=== PATIENT | male | born 1980 | race Caucasian/White ===

== ENCOUNTER 2022-05-29 10:45 | Emergency (ER) | payer BC, SELFPAY ==
[2022-05-29 11:00] VITALS: BP 126/76; PULSE 90; RESP 16; TEMP 37; O2SAT 99
[2022-05-29 11:01] VITALS: BP 126/76; PULSE 90; RESP 16; TEMP 37; O2SAT 99
--- NOTE | 2022-05-29 11:27 | ED.SKABFB ---
HPI - Skin/Abscess/Foreign Bdy General Chief complaint: Skin/Abscess/Foreign Body Stated complaint: Rash On Body Time Seen by Provider: 05/29/22 11:27 Source: patient Mode of arrival: ambulatory Limitations: no limitations History of Present Illness HPI narrative: 41-year-old male presents with complaint of itchy rash to body. Patient states that he has had this same rash in the past and it was fungal. States that he did a wash that he left on prior to getting into the shower. Also took some pills but he is unsure of what they were. States that he goes to the gym daily and thinks that the fungal rash Is possibly from gym equipment. all systems reviewed and negative except as noted above. Related Data Home Medications Medication Instructions Recorded Confirmed meloxicam 15 mg tablet 15 mg DIRECTED 05/29/22 05/29/22 tizanidine 4 mg tablet 4 mg DIRECTED 05/29/22 05/29/22 tramadol 50 mg tablet 50 mg DIRECTED 05/29/22 05/29/22 Allergies Allergy/AdvReac Type Severity Reaction Status Date / Time No Known Allergies Allergy Verified 05/29/22 11:00 Review of Systems Review of Systems: CONSTITUTIONAL: Denies fever, chills, or sweats. EYES: Denies visual changes, redness, or discharge. ENT: Denies rhinorrhea, congestion, sore throat, or otalgia. CARDIOVASCULAR: Denies chest pain, palpitations, or edema. RESPIRATORY: Denies cough or dyspnea. GASTROINTESTINAL: Denies abdominal pain, nausea, vomiting, or diarrhea. GENITOURINARY: Denies dysuria or hematuria. SKIN: Reports itchy rash to trunk. MUSCULOSKELETAL: Denies back pain, joint pain, or myalgia. NEUROLOGIC: Denies headache, numbness, or weakness. PSYCHIATRIC: Denies anxiety or depression. All other systems reviewed are negative, except as documented in HPI. PMFSH Comments At time of signature, agree with nursing past medical, surgical, social and family history. There is no relevant family history pertinent to the presenting complaint. Exam Narrative: GENERAL: This is a well-nourished, well-developed patient, in no apparent distress. HEAD: normocephalic, atraumatic. EYES: PERRL. Sclera clear/white. Vision is grossly intact. EARS: External ears normal NOSE: External nose normal NECK: Neck supple, non-tender without lymphadenopathy, masses or thyromegaly. CARDIOVASCULAR: Regular rate and rhythm without murmurs, gallops, or rubs. RESPIRATORY: Clear to auscultation. Breath sounds equal bilaterally. No wheezes, rales, or rhonchi. SKIN: warm, Dry, intact, good texture and turgor. erythematous erythematous scaling lesions to trunk NEURO: awake, alert, and oriented to person, place and time. There were no obvious focal neurologic abnormalities. EXTREMITIES: No joint tenderness, effusion, or edema noted. Course Course Level of Care: Express Care Visit Vital Signs Vital signs: Vital Signs Temperature 37.0 C 05/29/22 11:00 Pulse Rate 90 05/29/22 11:00 Respiratory Rate 16 05/29/22 11:00 Blood Pressure 126/76 05/29/22 11:00 Pulse Oximetry 99 05/29/22 11:00 Oxygen Delivery Room Air 05/29/22 11:00 Temperature 37.0 C 05/29/22 11:01 Pulse Rate 90 05/29/22 11:01 Respiratory Rate 16 05/29/22 11:01 Blood Pressure 126/76 05/29/22 11:01 Pulse Oximetry 99 05/29/22 11:01 Oxygen Delivery Room Air 05/29/22 11:01 reviewed MDM - Skin/Abscess/Foreign Bdy MDM Narrative Medical decision making narrative: Patient is aware of diagnosis, understands and agrees to treatment plan. Anticipatory guidance given. Patient agrees to follow-up as directed and is aware of reasons to seek care at the emergency department. Portions of this record may have been created with voice recognition software Discharge Plan Discharge Clinical Impression: Fungal rash of trunk Patient Disposition: Home, Self-Care Condition: Stable Instructions: Antifungals (On the skin) Additional Instructions: Take medications as prescr
== END 2022-05-29 11:42 | disposition home or self-care (01) ==
PROVIDERS: Emergency Provider Nurse Practitioner Family; PCP Family Medicine
DX: B36.9 Superficial mycosis, unspecified (principal)
CPT/HCPCS: 99203; G0463

== ENCOUNTER 2023-11-02 10:48 | Emergency (ER) | payer BC, SELFPAY ==
[2023-11-02 11:14] VITALS: BP 132/85; PULSE 73; RESP 19; TEMP 36.8; O2SAT 98
[2023-11-02 11:25] VITALS: PULSE 73; RESP 19; O2SAT 98
--- NOTE | 2023-11-02 11:29 | ED.URI ---
HPI - URI/Sore Throat General Chief Complaint: Upper Respiratory Infection Stated Complaint: COUGH / Congestion Time Seen by Provider: 11/02/23 11:29 Source: patient, RN notes reviewed and old records reviewed Mode of arrival: ambulatory Limitations: no limitations History of Present Illness HPI Narrative: Patient presents with 4 days of congested cough. He does have some associated nasal drainage and some left ear pain. He reports that he feels as though he has been wheezing when he exerts himself. 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 He is unsure of fever status. Has been taking multiple [id number] medications intermittently for symptoms with moderate relief. He is not in any distress at this time, including respiratory distress Related Data Allergies Allergy/AdvReac Type Severity Reaction Status Date / Time No Known Allergies Allergy Verified 11/02/23 11:11 Review of Systems Review of Systems: All systems reviewed & are unremarkable except as noted in HPI and below Constitutional: Constitutional: Reports as per HPI and Reports no additional constitutional complaints ENT: Reports system reviewed and no additional complaints, except as documented, Reports as per HPI and Reports nasal discharge Cardiovascular: Cardiovascular: Reports as per HPI and Reports no additional cardiovascular complaints Respiratory: Respiratory: Reports as per HPI, Reports no additional respiratory complaints, Reports chest congestion and Reports cough Gastrointestinal: Gastrointestinal: Reports no additional gastrointestinal complaints PMFSH Comments At the time of my signature, I reviewed and agree with the nursing past medical, surgical, social, and family history. There is no relevant family history pertinent to the patient complaint. Exam Const: General: cooperative, no acute distress, alert and awake Orientation/consciousness: oriented to person, oriented to place and oriented to time HENMT: Head: normal to inspection Ears: TM normal on the right and TM abnormal bulging, dull and erythematous Mouth: Yes moist mucous membranes Throat: posterior oropharynx abnormal erythema Resp: Effort & Inspection: normal respiratory effort and able to speak in complete sentences Auscultation: clear to auscultation bilaterally, no crackles, no rales, no rhonchi and wheezes scattered wheezes and throughout Cardio: Palpation: normal PMI Rate: regular rate Rhythm: regular rhythm Heart sounds: S1 normal heart sound present and S2 normal heart sound present Neuro: General: oriented to person, oriented to place and oriented to time Cranial nerves: Yes CN's II-XII intact bilaterally Psych: Appearance: grossly normal Thought process: Normal thought process present Insight: Good insight present (Psych) Judgement: Good judgement present (Psych) Course Course Level of Care: Express Care Visit Vital Signs Vital signs: Vital Signs Temperature 98.2 F 11/02/23 11:14 Pulse Rate 73 11/02/23 11:14 Respiratory Rate 19 11/02/23 11:14 Blood Pressure 132/85 11/02/23 11:14 Pulse Oximetry 98 11/02/23 11:14 Oxygen Delivery Room Air 11/02/23 11:14 Temperature 98.2 F 11/02/23 11:14 Pulse Rate 73 11/02/23 11:14 Respiratory Rate 11/02/23 11:14 Blood Pressure 132/85 11/02/23 11:14 Pulse Oximetry 98 11/02/23 11:14 Oxygen Delivery Room Air 11/02/23 11:14 Reviewed MDM - URI/Sore Throat MDM Narrative Medical decision making narrative: Exam consistent with acute otitis media. Start Augmentin. Also noted some mild scattered expiratory wheezes. Will treat with albuterol and prednisone. Patient to follow with primary care provider, emergency department for new or worse symptoms Discharge instructions reviewed with patient, as well as provided in writing per nursing staff. The instructions also include specific and strict return/GO TO THE ER as well as f/u information. All q
== END 2023-11-02 11:40 | disposition home or self-care (01) ==
PROVIDERS: Emergency Provider Nurse Practitioner Family; PCP Family Medicine
DX: H66.002 Acute suppurative otitis media without spontaneous rupture of ear drum, left ear (principal); J06.9 Acute upper respiratory infection, unspecified
CPT/HCPCS: 99213; G0463

== ENCOUNTER 2024-05-21 15:27 | Emergency (ER) | payer BC, SELFPAY ==
[2024-05-21 15:41] VITALS: BP 142/71; PULSE 66; RESP 18; TEMP 36.9; O2SAT 98
--- NOTE | 2024-05-21 16:00 | ED.URI ---
HPI - URI/Sore Throat General Chief Complaint: Ear Stated Complaint: Left Ear Irritation Time Seen by Provider: 05/21/24 15:43 Source: patient and RN notes reviewed Mode of arrival: ambulatory Limitations: no limitations History of Present Illness HPI Narrative: Patient presents today complaining 5 day history of left ear pain and slight muffling without drainage. Also reports a 2-3 day history of slight cough and some body aches. Denies fever. He has been using some Flonase daily and describes the ear pain as throbbing. Prior to onset of ear pain, patient had been flying in an airplane. Related Data Home Medications ?Medication ?Instructions ?Recorded ?Confirmed ?Last Taken ?Type apixaban 5 mg tablet (Eliquis) mg 05/21/24 Unknown History tramadol 50 mg tablet mg 05/21/24 Unknown History Allergies Allergy/AdvReac Type Severity Reaction Status Date / Time No Known Allergies Allergy Verified 05/21/24 15:34 Review of Systems Review of Systems: CONSTITUTIONAL: Denies fever, chills, or sweats.+ body aches EYES: Denies visual changes, redness, or discharge. ENT: Denies rhinorrhea, congestion, sore throat.+ left ear pain and muffling CARDIOVASCULAR: Denies chest pain, palpitations, or edema. RESPIRATORY: Denies dyspnea.+ cough GASTROINTESTINAL: Denies abdominal pain, nausea, vomiting, or diarrhea. GENITOURINARY: Denies dysuria or hematuria. SKIN: Denies rash, itching, or wounds. MUSCULOSKELETAL: Denies back pain, joint pain, or myalgia. NEUROLOGIC: Denies headache, numbness, tingling, or weakness. PSYCH: Denies depression or anxiety. PMFSH Comments At time of signature, I have reviewed and agree with nursing past medical, surgical, social and family history unless otherwise noted. Please see nursing chart for further information. There is no relevant family history pertinent to the presenting complaint Exam Narrative: GENERAL: Well-appearing, well-nourished, and in no acute distress. HEAD: Normocephalic, atraumatic. EYES: EOMI. No redness or drainage. Conjunctivae normal. ENT: Mucous membranes pink and moist. Nares clear. No rhinorrhea. Right TM normal. Left TM retracted without signs of infection. Throat normal. Uvula midline. NECK: Normal AROM. Supple. No lymphadenopathy. CHEST: No respiratory distress. Clear to auscultation. HEART: Regular rate and rhythm. No murmur appreciated. EXTREMITIES: Normal range of motion. No edema. SKIN: Warm, dry, no rash. Capillary refill normal. Normal skin turgor. NEURO: No focal deficits. Alert and oriented x3. Gait steady. PSYCH: Normal affect. No signs of depression or anxiety. Course Course Level of Care: Express Care Visit Vital Signs Vital signs: Vital Signs Temperature 98.5 F 05/21/24 15:41 Pulse Rate 66 05/21/24 15:41 Respiratory Rate 18 05/21/24 15:41 Blood Pressure 142/71 H 05/21/24 15:41 Pulse Oximetry 98 05/21/24 15:41 Oxygen Delivery Room Air 05/21/24 15:41 Temperature 98.5 F 05/21/24 15:41 Pulse Rate 66 05/21/24 15:41 Respiratory Rate 18 05/21/24 15:41 Blood Pressure 142/71 H 05/21/24 15:41 Pulse Oximetry 98 05/21/24 15:41 Oxygen Delivery Room Air 05/21/24 15:41 Reviewed MDM - URI/Sore Throat MDM Narrative Medical decision making narrative: Patient uses Flonase daily. Recommend some Sudafed to help equalize his ear. Will give a short course of prednisone to help with equalization as well as his cough. 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 Follow-up in ED precautions given. Differential Diagnosis Differential diagnosis: Likely upper respiratory infection, otitis media, sinusitis, viral infection, bronchitis and other (Otitis externa, ruptured TM, serous otitis) Critical Care Time Critical Care Time Critical Care Time: No Discharge Plan Discharge Clinical Impression: Upper respiratory infection Qualifiers: URI type: unspecified URI Qualified Code(s): J06.9 - Acute upper respiratory infection, unspecified Retracted ear drum Qualifiers: Laterality: left Qualified Code(s): H73.892 - Other specified disorders of tympanic membrane, left ear Patient Disposition: Home Condition: Stable Instructions: Upper Respiratory Infection (DC) Additional Instructions: Your upper respiratory symptoms are likely due to a viral illness, which is not treated with antibiotics. Virus symptoms can last for up to 7-10days. Take Tylenol for pain or fever. Take the prednisone as prescribed. Consider Sudafed or Afrin to help equalize your retracted eardrum. Continue your Flonase. Rest and stay hydrated. Follow up with your PCP in 7 days if symptoms are not improving. Go to the ER immediately if you develop shortness of breath, difficulty swallowing, or any other concerning symptoms. Your blood pressure was elevated above 120/80 today at Urgent Care. This puts you above the threshold for follow up. Please schedule a followup visit with your personal physician as soon as possible, for further evaluation and treatment. Even blood pressure exceeding 120/80 may indicate pre-hypertension. Patient Language: Amharic Prescriptions: New prednisone 50 mg tablet 50 mg PO DAILY 5 Days Qty: 5 0RF No Action albuterol sulfate [Ventolin HFA] 90 mcg/actuation HFA aerosol inhaler 2 puff inhalation QID PRN (Reason: shortness of breath or wheezing) Qty: 8.5 0RF tramadol 50 mg tablet Eliquis 5 mg tablet Follow-up/Referrals: Jaime,Darline Vanessa DO [Primary Care Provider] - Time of Disposition: 15:57
== END 2024-05-21 16:08 | disposition home or self-care (01) ==
PROVIDERS: Emergency Provider Nurse Practitioner; PCP Family Medicine
DX: J06.9 Acute upper respiratory infection, unspecified (principal); H73.892 Other specified disorders of tympanic membrane, left ear
CPT/HCPCS: 99213; G0463

== ENCOUNTER 2024-06-06 15:50 | Emergency (ER) | payer BC, SELFPAY ==
[2024-06-06 15:58] VITALS: BP 132/73; PULSE 104; RESP 16; TEMP 37.1; O2SAT 95
--- NOTE | 2024-06-06 16:10 | ED_ITS ---
HPI - URI/Sore Throat General Chief Complaint: Upper Respiratory Infection Stated Complaint: sinus infection Time Seen by Provider: 06/06/24 16:10 Source: patient Mode of arrival: ambulatory Limitations: no limitations History of Present Illness HPI Narrative: 43-year-old male presents with complaint of nasal congestion, postnasal drainage for the past 2-3 weeks. Patient takes Nasacort and Zyrtec daily. Rep orts history of yearly sinus infections. Patient reports left-sided sinus pressure the past 2 days. Afebrile. Started Sudafed yesterday. All systems reviewed and negative except as noted. Related Data Home Medications ?Medication ?Instructions ?Recorded ?Confirmed ?Last Taken ?Type apixaban 5 mg tablet (Eliquis) mg 05/21/24 Unknown History tramadol 50 mg tablet mg 05/21/24 Unknown History Allergies Allergy/AdvReac Type Severity Reaction Status Date / Time No Known Allergies Allergy Verified 06/06/24 16:01 Review of Systems Review of Systems: CONSTITUTIONAL: Denies fever, chills, or sweats. EYES: Denies visual changes, redness, or discharge. ENT: Denies Reports rhinorrhea, congestion, postnasal drainage, reports left- sided sinus pressure. Denies sore throat, or otalgia. CARDIOVASCULAR: Denies chest pain, palpitations, or edema. RESPIRATORY: Denies cough or dyspnea. GASTROINTESTINAL: Denies abdominal pain, nausea, vomiting, or diarrhea. GENITOURINARY: Denies dysuria or hematuria. SKIN: Denies rash or itching. MUSCULOSKELETAL: Denies back pain, joint pain, or myalgia. NEUROLOGIC: Denies headache, numbness, or weakness. PSYCHIATRIC: Denies anxiety or depression. All other systems reviewed are negative, except as documented in HPI. PMFSH Comments At time of signature, agree with nursing past medical, surgical, social and family history. There is no relevant family history pertinent to the presenting complaint. Exam Narrative: GENERAL: This is a well-nourished, well-developed patient, in no apparent distress. HEAD: normocephalic, atraumatic. EYES: PERRL. Sclera clear/white. Vision is grossly intact. EARS: External ears normal, auditory canals clear and without drainage, TMs normal without perforation. Hearing grossly intact. NOSE: External nose normal with erythema and swelling to bilateral nares. Left-sided maxillary sinus and frontal tenderness on palpation THROAT: Mucous membranes moist, postnasal drainage with erythema NECK: Neck supple, non-tender without lymphadenopathy, masses or thyromegaly. CARDIOVASCULAR: Regular rate and rhythm without murmurs, gallops, or rubs. RESPIRATORY: Clear to auscultation. Breath sounds equal bilaterally. No wheezes, rales, or rhonchi. SKIN: warm, Dry, intact with no suspicious lesions or rash, good texture and turgor. NEURO: awake, alert, and oriented to person, place and time. There were no obvious focal neurologic abnormalities. EXTREMITIES: No joint tenderness, effusion, or edema noted. Course Course Level of Care: Express Care Visit Vital Signs Vital signs: Vital Signs Temperature 37.1 C 06/06/24 15:58 Pulse Rate 104 H 06/06/24 15:58 Respiratory Rate 16 06/06/24 15:58 Blood Pressure 132/73 06/06/24 15:58 Pulse Oximetry 95 06/06/24 15:58 Oxygen Delivery Room Air 06/06/24 15:58 Temperature 37.1 C 06/06/24 15:58 Pulse Rate 104 H 06/06/24 15:58 Respiratory Rate 16 06/06/24 15:58 Blood Pressure 132/73 06/06/24 15:58 Pulse Oximetry 95 06/06/24 15:58 Oxygen Delivery Room Air 06/06/24 15:58 reviewed MDM - URI/Sore Throat MDM Narrative Medical decision making narrative: will treat patient for bacterial sinusitis due to duration of symptoms and exam findings. Patient is well-appearing, nontoxic. Please be advised this is a medical document. It is intended for [id number] communication. It is written in medical language and may contain unfamiliar abbreviations or verbiage. Medical documents are intended to carry relevant information, facts as evident, and the clinical opinion of the practitioner at the time of the encounter. This report may have been done utilizing a voice recognition system. Attempts have been made to correct errors. However, there may be uncorrected grammatical, spelling, and recognition errors present. The file time of this note does not necessarily represent the time of service. Differential Diagnosis Differential diagnosis: Likely upper respiratory infection, sinusitis and viral infection Discharge Plan Discharge Clinical Impression: Acute bacterial sinusitis Patient Disposition: Home Condition: Stable Instructions: Antibiotic Form, Sinusitis (ED) Additional Instructions: Take medications as prescribed. Continue [id number] Nasacort and Zyrtec as directed on packaging. Take Tylenol every 6-8 hours as needed for pain. Drink at least 64 oz of water a day. Follow-up with your doctor if symptoms are not improving. Patient Language: Peruvian Prescriptions: New prednisone 20 mg tablet 40 mg PO DAILY 5 Days Qty: 10 0RF amoxicillin-pot clavulanate 875-125 mg tablet 1 tablet PO Q12H 10 Days Qty: 20 0RF No Action tramadol 50 mg tablet Eliquis 5 mg tablet Follow-up/Referrals: Jaime,Darline Vanessa DO [Primary Care Provider] - Time of Disposition: 16:17
== END 2024-06-06 16:23 | disposition home or self-care (01) ==
PROVIDERS: Emergency Provider Nurse Practitioner Family; PCP Family Medicine
DX: J01.90 Acute sinusitis, unspecified (principal); Z86.718 Personal history of other venous thrombosis and embolism
CPT/HCPCS: 99213; G0463